=== PATIENT | male | born 1995 | race Caucasian/White ===

== ENCOUNTER 2016-11-04 08:11 | Emergency (ER) | payer OTHER ==
--- NOTE | 2016-11-04 09:31 | ED NURSING NOTES ---
Clinical Report - Nurses [facility] [address] [place] [address] 11/04/2016 8:12 Patient: DAMION CLARK TRIAGE Acuity: LEVEL 3. Chief Complaint: COUGH and RUNNY NOSE. Alert. No acute distress. SEPSIS SCREEN: Sepsis Screen. Negative (no infection suspected/documented). --08:38 Snow Ortega R.N. 08:28 11/04/16. BP: 119/79. HR: 114. RR: 20. O2 saturation: 98% on room air. Temp: 101.2 F (axillary). --08:38 Snow Ortega R.N. Weight: 46.7 kg stated. Height/Length: 68 inches Per Patient. BMI: 15.7. --08:32 Snow Ortega R.N. Medications Baclofen 10mg twice daily. Divalproex Sodium Oral 250mg , 1 tablet in am, 2 tabs at HS . --08:30 Snow Ortega R.N. OXcarbazepine Oral 600 mg, 2x a day. Topiramate Oral 25 mg, 5 tabs in am, 6 tabs at HS . --08:30 Snow Ortega R.N. Glycopyrrolate 1mg 4x/day . Ibuprofen Oral 400 mg, 2x a day as needed, last dose 0900. --08:30 Snow Ortega R.N. (mother). --08:38 Snow Ortega R.N. Allergies Cephalexin.(rash) Penicillins.(rash) --08:30 Snow Ortega R.N. History Arrived by private vehicle. Historian: patient. Accompanied by family. Primary physician (Trisha). Onset. (1 weeks ago). --08:38 Snow Ortega R.N. PROBLEMS: Pharyngitis. Prior Injury, Same Area. Fall. Radius Fracture. Cerebral Palsy. Immunizations. Pneumonia. Seizure Disorder. Stoke as child . --08:30 Snow Ortega R.N. Assessment GENERAL / NEURO / PSYCH: Alert. Appears in no acute distress. [place] Coma Scale: 15- eyes open spontaneously (4); best verbal response- oriented x 4 (5); best motor response- obeys commands (6). Patient appears calm and cooperative. RESPIRATORY: Respirations not labored. CVS: Capillary refill less than 2 seconds. SKIN: Mucous membranes are pink. Skin is warm and dry. --08:38 Snow Ortega R.N. Interventions ID band on patient. To treatment room. --08:38 Snow Ortega R.N. PHYSICAL ASSESSMENT Ambulatory to room. GENERAL / NEURO / PSYCH: Alert. Oriented X 4. Appears in no acute distress. HEENT: Pupils equal, round and reactive to light. Mucous membranes are pink. RESPIRATORY: Respirations not labored. CVS: Capillary refill less than 2 seconds. SKIN: Skin intact. Skin is warm and dry. Normal skin turgor. --08:39 Snow Ortega R.N. NURSING PROGRESS NOTES 08:39 11/04/16. Patient gowned. Call light placed in reach. Bed placed in lowest position. Brakes of bed on. Patient ready for evaluation- chart flagged. --08:39 Snow Ortega R.N. 08:57 11/04/2016 Acetaminophen (APAP) PO 500 mg given. Allergies verified and confirmed 5 rights. --08:57 Snow Ortega R.N. ED physician notified that lab results are back. Notified (+ Strep). --09:14 Jud Minor R.N. DISPOSITION / DISCHARGE Departure time: 944Nov 04 2016. Condition at departure: improved and stable. Discharge instructions provided and reviewed with the parent. Parent verbalized understanding. Written instructions provided in Estonian. The patient was discharged by the physician. He was discharged home and accompanied by parent. He left the Emergency Department ambulatory and via private vehicle. Parent driving. --15:37 Snow Ortega R.N. Locked/Released at 11/04/2016 15:37 by Snow Ortega R.N.
--- NOTE | 2016-11-04 09:31 | ED NURSING NOTES ---
Clinical Report - Nurses [facility] [address] [place] [address] 11/04/2016 8:12 Patient: DAMION CLARK TRIAGE Acuity: LEVEL 3. Chief Complaint: COUGH and RUNNY NOSE. Alert. No acute distress. SEPSIS SCREEN: Sepsis Screen. Negative (no infection suspected/documented). --08:38 Snow Ortega R.N. 08:28 11/04/16. BP: 119/79. HR: 114. RR: 20. O2 saturation: 98% on room air. Temp: 101.2 F (axillary). --08:38 Snow Ortega R.N. Weight: 46.7 kg stated. Height/Length: 68 inches Per Patient. BMI: 15.7. --08:32 Snow Ortega R.N. Medications Baclofen 10mg twice daily. Divalproex Sodium Oral 250mg , 1 tablet in am, 2 tabs at HS . --08:30 Snow Ortega R.N. OXcarbazepine Oral 600 mg, 2x a day. Topiramate Oral 25 mg, 5 tabs in am, 6 tabs at HS . --08:30 Snow Ortega R.N. Glycopyrrolate 1mg 4x/day . Ibuprofen Oral 400 mg, 2x a day as needed, last dose 0900. --08:30 Snow Ortega R.N. (mother). --08:38 Snow Ortega R.N. Allergies Cephalexin.(rash) Penicillins.(rash) --08:30 Snow Ortgea R.N. History Arrived by private vehicle. Historian: patient. Accompanied by family. Primary physician (Trisha). Onset. (1 weeks ago). --08:38 Snow Ortega R.N. PROBLEMS: Pharyngitis. Prior Injury, Same Area. Fall. Radius Fracture. Cerebral Palsy. Immunizations. Pneumonia. Seizure Disorder. Stoke as child . --08:30 Snow Ortega R.N. Assessment GENERAL / NEURO / PSYCH: Alert. Appears in no acute distress. [place] Coma Scale: 15- eyes open spontaneously (4); best verbal response- oriented x 4 (5); best motor response- obeys commands (6). Patient appears calm and cooperative. RESPIRATORY: Respirations not labored. CVS: Capillary refill less than 2 seconds. SKIN: Mucous membranes are pink. Skin is warm and dry. --08:38 Snow Ortega R.N. Interventions ID band on patient. To treatment room. --08:38 Snow Ortega R.N. PHYSICAL ASSESSMENT Ambulatory to room. GENERAL / NEURO / PSYCH: Alert. Oriented X 4. Appears in no acute distress. HEENT: Pupils equal, round and reactive to light. Mucous membranes are pink. RESPIRATORY: Respirations not labored. CVS: Capillary refill less than 2 seconds. SKIN: Skin intact. Skin is warm and dry. Normal skin turgor. --08:39 Snow Ortega R.N. NURSING PROGRESS NOTES 08:39 11/04/16. Patient gowned. Call light placed in reach. Bed placed in lowest position. Brakes of bed on. Patient ready for evaluation- chart flagged. --08:39 Snow Ortega R.N. 08:57 11/04/2016 Acetaminophen (APAP) PO 500 mg given. Allergies verified and confirmed 5 rights. --08:57 Snow Ortega R.N. ED physician notified that lab results are back. Notified (+ Strep). --09:14 Jud Minor R.N. DISPOSITION / DISCHARGE Departure time: 944Nov 04 2016. Condition at departure: improved and stable. Discharge instructions provided and reviewed with the parent. Parent verbalized understanding. Written instructions provided in Maori. The patient was discharged by the physician. He was discharged home and accompanied by parent. He left the Emergency Department ambulatory and via private vehicle. Parent driving. --15:37 Snow Ortega R.N. Locked/Released at 11/04/2016 15:37 by Snow Ortega R.N.
--- NOTE | 2016-11-04 09:31 | ED CLINICAL REPORT ---
Clinical Report - Physicians/Mid Levels [facility] [address] [place] [address] 11/04/2016 8:12 Patient: DAMION CLARK Time Seen: 08:32; initial patient contact. Arrived- By private vehicle. Historian- family. HISTORY OF PRESENT ILLNESS Chief Complaint: COUGH and FEVER. This started about 5 days ago and is still present. The illness is described as moderate. The patient has had a cough, nasal congestion, sinus drainage, fever and chills. He has had a nasal discharge. No sputum production, difficulty breathing or chest discomfort or pain. Additional history - The patient has had contact with a sick individual. Similar symptoms previously: None. Recent medical care: Not recently seen/assessed. REVIEW OF SYSTEMS No nausea, vomiting or skin rash. All systems otherwise negative, except as recorded above. PAST HISTORY Pharyngitis. Prior Injury, Same Area. Fall. Radius Fracture. Cerebral Palsy. Immunizations. Pneumonia. Seizure Disorder. Stoke as child . Medications: Glycopyrrolate 1mg 4x/day . Ibuprofen Oral 400 mg, 2x a day as needed, last dose 0900. OXcarbazepine Oral 600 mg, 2x a day. Topiramate Oral 25 mg, 5 tabs in am, 6 tabs at HS . Baclofen 10mg twice daily. Divalproex Sodium Oral 250mg , 1 tablet in am, 2 tabs at HS . Allergies: Cephalexin.(rash) Penicillins.(rash). SOCIAL HISTORY Never smoker. Not exposed to second-hand smoke at home. No alcohol use or drug use. ADDITIONAL NOTES The nursing notes have been reviewed with agreement regarding the chief complaint, PMH and patient medications and allergies. PHYSICAL EXAM Vital Signs: 11/04/2016 08:28 BP: 119/79. HR: 114. RR: 20. O2 saturation: 98%. Temp: 101.2 F. Have been reviewed. Blood pressure normal. Tachycardic. Respiratory rate normal. Febrile. Oxygen saturation normal. Appearance: Alert. No acute distress. Eyes: Eyes normal inspection. ENT: Ears normal. Moderate generalized pharyngeal erythema with right tonsillar swelling and left tonsillar swelling. The mucous membranes are not dry. Neck: No meningeal signs or lymphadenopathy. CVS: Normal heart rate and rhythm. Heart sounds normal. Respiratory: No respiratory distress. Breath sounds normal. Skin: Normal skin color. No rash. Extremities: No lower extremity edema. LABS, X-RAYS, AND EKG Laboratory Tests: Culture, Strep Screen: (CURTIS: 11/04/2016 08:40) ( MsgRcvd 11/04/2016 09:17) Final results Test Result Flag Units (Reference) RAPID STREP SCREEN - THROAT CALLED TO: ELOISE CEJA IN ED @0915 ON 11-04-16 -- DATE: 11/04/16 POSITIVE SCREEN: RAPID STREP SCREEN: POSITIVE FOR GROUP A STREP Rapid Influenza Screen: (CURTIS: 11/04/2016 08:40) ( MsgRcvd 11/04/2016 09:17) Final results SPECIMEN DESCRIPTION: ... Test Result Flag Units (Reference) RAPID INFLUENZA SCREEN DATE: 11/04/16 INFLUENZA A: NEGATIVE SCREEN FOR INFLUENZA A INFLUENZA B: NEGATIVE SCREEN FOR INFLUENZA B . PROGRESS AND PROCEDURES Disposition: Discharged home in good condition. Condition: good. CLINICAL IMPRESSION Acute streptococcal pharyngitis INSTRUCTIONS Alternate Tylenol (Acetaminophen) or Motrin (Ibuprofen) for fever. Take according to label instructions. Drink plenty of fluids. Your Current Medications: CONTINUE TAKING THE FOLLOWING MEDICATIONS: Baclofen : 10mg twice daily. Divalproex Sodium Oral : 250mg 1 tablet in am, 2 tabs at HS. Glycopyrrolate : 1mg 4x/day. Ibuprofen Oral : 400 mg 2x a day, Last: 0900, prn. OXcarbazepine Oral : 600 mg 2x a day. Topiramate Oral : 25 mg 5 tabs in am, 6 tabs at HS. Prescription Medications: Zithromax Z-Antonio: Take according to package instructions. Total course 5 days. No refills. Substitution is permissible. Follow-up: Follow up with your doctor in about two days. Call for an appointment. Screening today revealed the patient's blood pressure to be in the normal range. (Electronically signed by Jose F Jacobs Dr. 11/04/2016 9:51)
--- NOTE | 2016-11-04 09:31 | ED ORDER SUMMARY ---
..... Patient: DAMION CLARK OrderSheet [facility] VisitID: [id number] [address] [place] [address] 21y, M Registration Date/Time: 11/04/2016 ORDER SHEET Weight: 46.7 kg (stated) Allergies: Cephalexin, Penicillins GENERAL ORDERS: Rapid Influenza Screen (Nasal Pharyngeal) (...) Urgent (08:43 11/04/2016 Jazmine Last) (Sent 8:43 Jazmine Last) (8:52 MWinterer R.N.) Culture, Strep Screen Urgent (08:43 11/04/2016 Jazmine Last) (Sent 8:43 Jazmine Last) (8:52 MWinterer R.N.) MEDICATION ORDERS: Acetaminophen PO 1,000 mg (NOW) (08:52 11/04/2016 Jazmine Last) (Ack 8:53 MWinterer R.N.) (8:57 MWinterer R.N.) IV FLUIDS: ORDER SHEET NOTES: [Electronically signed by Jose F Jacobs Dr. (09:51 11/04/2016)] [Electronically signed by Snow Ortega R.N. (15:37 11/04/2016)] [Electronically locked/signed by Snow Ortega R.N. (15:37 11/04/2016)]
--- NOTE | 2016-11-04 09:31 | ED ORDER SUMMARY ---
..... Patient: DAMION CLARK OrderSheet [facility] VisitID: [id number] [address] [place] [address] 21y, M Registration Date/Time: 11/04/2016 ORDER SHEET Weight: 46.7 kg (stated) Allergies: Cephalexin, Penicillins GENERAL ORDERS: Rapid Influenza Screen (Nasal Pharyngeal) (...) Urgent (08:43 11/04/2016 Jazmine Last) (Sent 8:43 Jazmine Last) (8:52 MWinterer R.N.) Culture, Strep Screen Urgent (08:43 11/04/2016 Jazmine Last) (Sent 8:43 Jazmine Last) (8:52 MWinterer R.N.) MEDICATION ORDERS: Acetaminophen PO 1,000 mg (NOW) (08:52 11/04/2016 Jazmine Last) (Ack 8:53 MWinterer R.N.) (8:57 MWinterer R.N.) IV FLUIDS: ORDER SHEET NOTES: [Electronically signed by Jose F Jacobs Dr. (09:51 11/04/2016)] [Electronically signed by Snow Ortega R.N. (15:37 11/04/2016)] [Electronically locked/signed by Snow Ortega R.N. (15:37 11/04/2016)]
--- NOTE | 2016-11-04 15:38 | ED MED RECONCILIATION SUMMARY ---
Patient: DAMION CLARK Medication Reconciliation Report [facility] VisitID: [id number] [address] [place] [address] 21y, M Registration Date/Time: 11/04/2016 Weight: 46.7 kg Height/Length: 68 in. BMI: 15.7 ALLERGIES: Cephalexin, Penicillins The patient's Home Medications are listed below: CONTINUE TAKING THE FOLLOWING MEDICATIONS: Baclofen 10mg twice daily Divalproex Sodium Oral 250mg , 1 tablet in am, 2 tabs at HS Glycopyrrolate 1mg 4x/day Ibuprofen Oral 400 mg, 2x a day, last dose: 0900 OXcarbazepine Oral 600 mg, 2x a day Topiramate Oral 25 mg, 5 tabs in am, 6 tabs at HS The source(s) of the original Home Medication information: mother The following Medications were given to the patient in the Emergency Department: Acetaminophen [PO] PO 500 mg, administered: 11/04/2016 8:57:00 AM The following Medications were prescribed to the patient: Zithromax Z-Antonio: Take according to package instructions. Total course 5 days. No refills. Substitution is permissible. -- Jose F Jacobs Dr.
--- NOTE | 2016-11-04 15:38 | ED MAR SUMMARY ---
..... Medication Administration Record [facility] [address] [address] Patient: DAMION CLARK Visit ID: [id number] 21y, M Weight: 46.7 kg Height/Length: 68 in BMI: 15.7 ALLERGIES: Cephalexin, Penicillins Given 08:57 11/04/2016 Snow Ortega R.N. Medication Administered: ACETAMINOPHEN [PO] (APAP), Dose: 500 mg PO. Medication Ordered: Acetaminophen PO 1,000 mg (NOW).
--- NOTE | 2016-11-04 15:38 | ED DISCHARGE INSTRUCTIONS ---
Patient: DAMION CLARK General Instructions [facility] VisitID: [id number] [place] [address] 21y, M Registration Date/Time: 11/04/2016 Acute streptococcal pharyngitis INSTRUCTIONS Alternate Tylenol (Acetaminophen) or Motrin (Ibuprofen) for fever. Take according to label instructions. Drink plenty of fluids. Your Current Medications: CONTINUE TAKING THE FOLLOWING MEDICATIONS: Baclofen : 10mg twice daily. Divalproex Sodium Oral : 250mg 1 tablet in am, 2 tabs at HS. Glycopyrrolate : 1mg 4x/day. Ibuprofen Oral : 400 mg 2x a day, Last: 0900, prn. OXcarbazepine Oral : 600 mg 2x a day. Topiramate Oral : 25 mg 5 tabs in am, 6 tabs at HS. Prescription Medications: Zithromax Z-Antonio: Take according to package instructions. Total course 5 days. No refills. Substitution is permissible. Follow-up: Follow up with your doctor in about two days. Call for an appointment. Screening today revealed the patient's blood pressure to be in the normal range. ADDITIONAL INFORMATION Pharyngitis: Strep [Confirmed] Your test for strep throat was positive. Strep throat is a contagious illness. It is spread by coughing, kissing or by touching others after touching your mouth or nose. Symptoms include throat pain which is worse with swallowing, aching all over, headache and fever. You will be treated with an antibiotic which should make you start to feel better within 1-2 days. Home Care: Rest at home and drink plenty of fluids to avoid dehydration. No school or work for the first two days on antibiotics. You will not be contagious after this time and if you are feeling better, you can return to school or work. Take your antibiotics for a full 10 days, even if you feel better after the first few days of treatment. This is very important to prevent heart or kidney disease that can result as a complication of untreated strep throat infection. Children: Use acetaminophen (Tylenol) for fever, fussiness or discomfort. In infants over six months of age, you may use ibuprofen (Children's Motrin) instead of Tylenol. [NOTE: If your child has chronic liver or kidney disease or ever had a stomach ulcer or GI bleeding, talk with your doctor before using these medicines.] (Aspirin should never be used in anyone under 18 years of age who is ill with a fever. It may cause severe liver damage.)Adults: You may use acetaminophen (Tylenol) or ibuprofen (Motrin, Advil) to control pain or fever, unless another medicine was prescribed for this. [NOTE: If you have chronic liver or kidney disease or ever had a stomach ulcer or GI bleeding, talk with your doctor before using these medicines.] Throat lozenges or sprays (Chloraseptic and others) will reduce pain. Gargling with warm salt water will also reduce throat pain. Dissolve 1/2 teaspoon of salt in 1 glass of warm water. This is especially useful just before meals. Follow Up with your doctor or as directed by our staff if you are not improving over the next week. Get Prompt Medical Attention if any of the following occur: Fever of 100.4F (38C) oral or higher, not better with fever medication New or worsening ear pain, sinus pain or headache Painful lumps in the back of your neck Unable to swallow liquids or open your mouth wide due to throat pain Trouble breathing or noisy breathing Muffled voice New rash Fever Control (Adult) A fever is a natural reaction of the body to an illness. In most cases, the temperature itself is not harmful. It actually helps the body fight infections. A fever does not need to be treated unless you feel very uncomfortable. Home Care If you feel warm, check your temperature. If you feel very uncomfortable and your temperature is at or higher than 100.4F (38C) oral, you may take acetaminophen (Tylenol) every 4 to 6 hours. If you cant take or keep down oral medicine, ask your pharmacist for Tylenol suppositories, which you can get without a prescription. If the fever does not respond to acetaminophen within 1 hour, take ibuprofen (Advil or Motrin). If this works, keep taking the ibuprofen every 6 to 8 hours. Note: If you have chronic liver or kidney disease or ever had a stomach ulcer or GI bleeding, talk with your doctor before using these medications. If either medication alone does not keep the fever down, you may alternate the two medicines every 3 to 4 hours, only if your healthcare provider has instructed you to do so. For example, take Motrin then wait 3 hours, take Tylenol then wait 3 hours, take Motrin, and so on. Follow your healthcare providers instructions exactly. Clothing: Keep clothing light because excess body heat is lost through the skin. The fever will go up if you wear extra layers or wrap in blankets. Fluids: Fever causes the body to lose water through evaporation. Drink plenty of fluids such as water, juice, clear sodas, irais timoteo, or lemonade. Do not use aspirin in anyone under 18 years of age who is ill with a fever. It can cause severe liver damage. Follow Up with your doctor or as advised by our staff if you do not get better after 48 hours. Get Prompt Medical Attention if any of the following occur: Fever does not get better after taking fever medication Fast or difficult breathing Earache, sinus pain, stiff or painful neck, headache, repeated diarrhea or vomiting You feel unusually irritable, drowsy, or confused A rash appears You feel weak or dizzy, or that you might faint Azithromycin Oral tablet What is this medicine? AZITHROMYCIN (az ith rita MYE sin) is a macrolide antibiotic. It is used to treat or prevent certain kinds of bacterial infections. It will not work for colds, flu, or other viral infections. How should I use this medicine? Take this medicine by mouth with a full glass of water. Follow the directions on the prescription label. The tablets can be taken with food or on an empty stomach. If the medicine upsets your stomach, take it with food. Take your medicine at regular intervals. Do not take your medicine more often than directed. Take all of your medicine as directed even if you think your are better. Do not skip doses or stop your medicine early. Talk to your pbx wire chief regarding the use of this medicine in children. Special care may be needed. What side effects may I notice from receiving this medicine? Side effects that you should report to your doctor or health health care social worker as soon as possible: allergic reactions like skin rash, itching or hives, swelling of the face, lips, or tongue confusion, nightmares or hallucinations dark urine difficulty breathing hearing loss irregular heartbeat or chest pain pain or difficulty passing urine redness, blistering, peeling or loosening of the skin, including inside the mouth white patches or sores in the mouth yellowing of the eyes or skin Side effects that usually do not require medical attention (report to your doctor or health health care social worker if they continue or are bothersome): diarrhea dizziness, drowsiness headache stomach upset or vomiting tooth discoloration vaginal irritation What may interact with this medicine? Do not take this medicine with any of the following medications: lincomycin This medicine may also interact with the following medications: amiodarone antacids cyclosporine digoxin magnesium nelfinavir phenytoin warfarin What if I miss a dose? If you miss a dose, take it as soon as you can. If it is almost time for your next dose, take only that dose. Do not take double or extra doses. Where should I keep my medicine? Keep out of the reach of children. Store at room temperature between 15 and 30 degrees C (59 and 86 degrees F). Throw away any unused medicine after the expiration date. What should I tell my health care provider before I take this medicine? They need to know if you have any of these conditions: kidney disease liver disease irregular heartbeat or heart disease an unusual or allergic reaction to azithromycin, erythromycin, other macrolide antibiotics, foods, dyes, or preservatives or trying to get breast-feeding What should I watch for while using this medicine? Tell your doctor or health health care social worker if your symptoms do not improve. Do not treat diarrhea with over the counter products. Contact your doctor if you have diarrhea that lasts more than 2 days or if it is severe and watery. This medicine can make you more sensitive to the sun. Keep out of the sun. If you cannot avoid being in the sun, wear protective clothing and use sunscreen. Do not use sun lamps or tanning beds/booths. You have been given the following additional information: Pharyngitis, Strep (Confirmed) Fever Control (Adult) Azithromycin Oral tablet (Electronically signed by Jose F Jacobs Dr. 11/04/2016 9:51)
--- NOTE | 2016-11-04 15:38 | ED MAR SUMMARY ---
..... Medication Administration Record [facility] [address] [place] [address] Patient: DAMION CLARK Visit ID: [id number] 21y, M Weight: 46.7 kg Height/Length: 68 in BMI: 15.7 ALLERGIES: Cephalexin, Penicillins Given 08:57 11/04/2016 Snow Ortega R.N. Medication Administered: ACETAMINOPHEN [PO] (APAP), Dose: 500 mg PO. Medication Ordered: Acetaminophen PO 1,000 mg (NOW).
--- NOTE | 2016-11-04 15:38 | ED MED RECONCILIATION SUMMARY ---
Patient: DAMION CLARK Medication Reconciliation Report [facility] VisitID: [id number] [address] [place] [address] 21y, M Registration Date/Time: 11/04/2016 Weight: 46.7 kg Height/Length: 68 in. BMI: 15.7 ALLERGIES: Cephalexin, Penicillins The patient's Home Medications are listed below: CONTINUE TAKING THE FOLLOWING MEDICATIONS: Baclofen 10mg twice daily Divalproex Sodium Oral 250mg , 1 tablet in am, 2 tabs at HS Glycopyrrolate 1mg 4x/day Ibuprofen Oral 400 mg, 2x a day, last dose: 0900 OXcarbazepine Oral 600 mg, 2x a day Topiramate Oral 25 mg, 5 tabs in am, 6 tabs at HS The source(s) of the original Home Medication information: mother The following Medications were given to the patient in the Emergency Department: Acetaminophen [PO] PO 500 mg, administered: 11/04/2016 8:57:00 AM The following Medications were prescribed to the patient: Zithromax Z-Antonio: Take according to package instructions. Total course 5 days. No refills. Substitution is permissible. -- Jose F Jacobs Dr.
== END 2016-11-04 09:48 | disposition home or self-care (01) ==
LOC: ED SRH 08:11
DX: J02.0 Streptococcal pharyngitis (principal); R05 Cough; G40.909 Epilepsy, unspecified, not intractable, without status epilepticus; Z88.1 Allergy status to other antibiotic agents; Z88.0 Allergy status to penicillin; Z79.899 Other long term (current) drug therapy
CPT/HCPCS: 90154; 91400

== ENCOUNTER 2017-03-27 11:38 | Outpatient (CLI) | payer OTHER ==
--- NOTE | 2017-03-27 12:28 | DIAGNOSTIC IMAGING REPORT ---
PROCEDURE: XR ELBOW 3 OR 4 VIEWS - LEFT INDICATION: L ELBOW PAIN TECHNIQUE: Four views. COMPARISON: Left elbow films dated 05/19/2009 FINDINGS: Status post ORIF of left lateral humeral condyle fracture which is transfixed with two screws. There are osseous densities adjacent to the lateral condyle which may represent old fracture fragments. IMPRESSION: 1. No change from 05/19/2009. 2. No acute fractures.
== END 2017-03-27 23:00 | disposition home or self-care (01) ==
LOC: XR SRH 11:38
DX: M25.522 Pain in left elbow (principal)